=== PATIENT | female | born 1975 | race Two or more races ===

== ENCOUNTER 2018-07-24 09:54 | Inpatient (IN) | payer MEDICAID, OTHER ==
[~2018-07-24] VITALS: Ht 162.6 cm; Wt 74.8 kg
[2018-07-24] MEDS ORDERED: MAGNESIUM/ALUMINUM HYDROXIDE/SIMETHICONE 30ML UDC PO STA (10:03)
[2018-07-24] MEDS ORDERED: ONDANSETRON HCL 4MG/2ML INJ IV STA (10:03)
[2018-07-24] MEDS ORDERED: SODIUM CHLORIDE 0.9% 1,000 ML IV ONE ×2 (10:03→13:00)
[2018-07-24] MEDS ORDERED: FAMOTIDINE 20MG/2ML VIAL IV STA (10:03)
[2018-07-24 10:34] LABS: CLARITY URINE TURBID (CLEAR); COLOR URINE YELLOW (YELLOW); KETONES URINE NEGATIVE (NEGATIVE); LEUKOCYTE ESTERASE URINE TRACE (NEGATIVE); NITRITE URINE NEGATIVE (NEGATIVE); OCCULT BLOOD URINE TRACE (NEGATIVE); PH URINE 6.5 (4.5-8.0); PROTEIN URINE NEGATIVE (NEGATIVE); SPECIFIC GRAVITY URINE 1.013 (1.005-1.030)
[2018-07-24 11:03] LABS: BASOPHILS % 0.2 % (0.0-2.0); EOSINOPHILS % 0.2 % (0.0-5.0); HEMATOCRIT. 43.9 % (36.0-48.0); HEMOGLOBIN. 14.7 g/dL (12.0-16.0); LYMPHOCYTES % 31.9 % (20.0-50.0); MEAN CORPUSCULAR HEMOGLOBIN 31.4 pg (28.0-32.0); MEAN CORPUSCULAR VOLUME 93.3 fL (81.0-99.0); MONOCYTES % 7.8 % (2.0-8.0); NEUTROPHILS % 59.9 % (40.0-76.0); PLATELET 214 x1000/uL (130-400); RED CELL DISTRIBUTION WIDTH 13.6 % (11.6-14.6)
[2018-07-24 11:06] LABS: CHLORIDE 105 mEq/L (98-107)
[2018-07-24 11:11] LABS: PROTHROMBIN TIME 10.2 sec (9.1-11.1)
[2018-07-24] MEDS ORDERED: CEFTRIAXONE 1 G PREMIX 50 ML IV ONE (13:00)
[2018-07-24] MEDS ORDERED: ONDANSETRON HCL 4MG/2ML INJ IV ONE (13:00)
[2018-07-24] MEDS ORDERED: FENTANYL CITRATE/PF 50MCG/ML 2ML VIAL IV ONE (13:00)
[2018-07-24] MEDS ORDERED: ONDANSETRON HCL 4MG/2ML INJ IV PRN (13:45)
[2018-07-24] MEDS ORDERED: KETOROLAC 30MG/ML VIAL IV PRN (13:45)
[2018-07-24 16:00] VITALS: BP 114/35
[2018-07-24 16:30] VITALS: BP 114/35
[2018-07-24] MEDS: PANTOPRAZOLE SODIUM 40 MG/VIAL IV SCH (18:05)
[2018-07-24 20:00] VITALS: BP 104/56
[2018-07-24] MEDS ORDERED: ZOLPIDEM TARTRATE 5MG TABLET PO PRN (21:00)
[2018-07-24] MEDS ORDERED: MEDICATION NOT ON FORMULARY EA INJ PRN (21:00)
[2018-07-24] MEDS: DEXT 5%/0.9% NACL 1,000 ML IV SCH (21:24)
[2018-07-24] MEDS ORDERED: HYDROMORPHONE HCL/PF 2MG/ML CPJ IV PRN (21:30)
[2018-07-24] MEDS: HYDROMORPHONE HCL/PF 2MG/ML CPJ IV PRN (22:01)
[2018-07-25] VITALS: BP 117/58
[2018-07-25 04:00] VITALS: BP 144/51
[2018-07-25 06:05] LABS: BASOPHILS % 0.3 % (0.0-2.0); EOSINOPHILS % 0.6 % (0.0-5.0); HEMATOCRIT. 38.2 % (36.0-48.0); HEMOGLOBIN. 12.8 g/dL (12.0-16.0); LYMPHOCYTES % 41.3 % (20.0-50.0); MEAN CORPUSCULAR HEMOGLOBIN 31.5 pg (28.0-32.0); MEAN CORPUSCULAR VOLUME 94.2 fL (81.0-99.0); MEAN PLATELET VOLUME 9.2 fl (7.4-10.4); MONOCYTES % 8.6 % (2.0-8.0); NEUTROPHILS % 49.2 % (40.0-76.0); PLATELET 159 x1000/uL (130-400); RED BLOOD CELL COUNT 4.06 mill/uL (4.2-5.4); RED CELL DISTRIBUTION WIDTH 13.4 % (11.6-14.6)
[2018-07-25 06:13] LABS: CHLORIDE 109 mEq/L (98-107)
[2018-07-25 08:00] VITALS: BP 127/71
[2018-07-25] MEDS: PANTOPRAZOLE SODIUM 40 MG/VIAL IV SCH (09:15)
[2018-07-25] MEDS: HYDROMORPHONE HCL/PF 2MG/ML CPJ IV PRN (09:55)
[2018-07-25] MEDS: DEXT 5%/0.9% NACL 1,000 ML IV SCH (10:02)
[2018-07-25 12:00] VITALS: BP 114/58
[2018-07-25 15:03] LABS: *AMPHETAMINES SCREEN URINE NEGATIVE (NEGATIVE); *BARBITURATES SCREEN URINE NEGATIVE (NEGATIVE); *BENZODIAZEPINES SCREEN URINE NEGATIVE (NEGATIVE)
[2018-07-25 15:04] LABS: METHADONE URINE SCREEN NEGATIVE (NEGATIVE); OPIATES URINE SCREEN NEGATIVE (NEGATIVE); PHENCYCLIDINE URINE SCREEN NEGATIVE (NEGATIVE)
[2018-07-25 15:10] LABS: *COCAINE SCREEN URINE PRESUMTIVE POSITIVE (NEGATIVE); CANNABINOID URINE SCREEN PRESUMTIVE POSITIVE (NEGATIVE)
[2018-07-25 16:00] VITALS: BP 124/56
[2018-07-25] MEDS ORDERED: HYDROMORPHONE HCL/PF 2MG/ML CPJ IV PRN (17:30)
[2018-07-25] MEDS ORDERED: CEFTRIAXONE 1 G PREMIX 50 ML IV SCH (18:00)
== END 2018-07-25 17:20 | disposition left against medical advice (07) | DRG 282 ==
LOC: ER 09:54 → 6EST 13:12 → ENRESERV 13:42
PROVIDERS: ADMIT Internal Medicine; ATTEND Internal Medicine
DX: K85.90 Acute pancreatitis without necrosis or infection, unspecified (principal); R17 Unspecified jaundice; F12.90 Cannabis use, unspecified, uncomplicated; F14.90 Cocaine use, unspecified, uncomplicated; N39.0 Urinary tract infection, site not specified; E80.6 Other disorders of bilirubin metabolism; Z79.899 Other long term (current) drug therapy; Z53.21 Procedure and treatment not carried out due to patient leaving prior to being seen by health care provider; K52.9 Noninfective gastroenteritis and colitis, unspecified
CPT/HCPCS: 36415; 71045; 76705; 80048; 80305; 81025; 84478; 84484; 87077; 87186; 93005; 93306; 96361; 96374; 96375; 96376; 99285; C9113; J0696; J1170; J1885; J2405; J3010; J3490; J7030; J7040; J7042